=== PATIENT | female | born 1990 | race Caucasian/White ===

== ENCOUNTER 2017-09-24 03:17 | Inpatient (IN) | payer OTHER ==
[~2017-09-24] VITALS: Ht 160 cm; Wt 70.9 kg
[~2017-09-24 03:17] MED LIST: CLC100 PO; FRRS300 PO; MTR600X PO; PRENTAB26 PO
[2017-09-26] MEDS ORDERED: LACTATED RINGER'S 1000ML 1,000 ML IV SCH ×2 (00:31→03:29)
[2017-09-26] MEDS ORDERED: LACTATED RINGER'S 1000ML 1,000 ML IV PRN (00:31)
[2017-09-26] MEDS ORDERED: BUPIVACAINE 0.25% 30 ML VIAL ONE (00:44)
--- NOTE | 2017-09-26 00:44 | Progress Note ---
Progress Note Date of Service Sep 26, 2017. Progress Note Admit Note 27 F P1001 at 40.2 weeks admitted in active labor. Cervix 6-7/100/-1/vertex. GBS is negative. FHT Cat 1. Will admit planning for epidural.
[2017-09-26] MEDS ORDERED: FENTANYL 2MCG/ML ROPIV 1.25MG/ML 100ML BAG EPI ONE (00:45)
[2017-09-26] MEDS ORDERED: FENTANYL CITRATE INJ 50 MCG/1 ML 2 ML VIAL ONE (00:45)
[2017-09-26] MEDS ORDERED: EpHEDrine SULFATE INJ 50 MG/ML AMP ONE (00:45)
[2017-09-26 00:54] LABS: HEMATOCRIT 37.8 % (37-47); HEMOGLOBIN 13.7 g/dL (12.0-16.0); MEAN CELL VOLUME 94.3 fL (80-100); MEAN CORPUSCULAR HEMOGLOBIN 34.2 pg (25-34); MEAN CORPUSCULAR HGB CONC 36.2 g/dl (32-36); MEAN PLATELET VOLUME 11.2 fL (7.4-10.4); PLATELET COUNT 189 K/uL (130-400); RED CELL DISTRIBUTION WIDTH CV 13.2 % (11.5-14.5); RED CELL DISTRIBUTION WIDTH SD 45.7 fL (36.4-46.3); WHITE BLOOD COUNT 12.88 K/uL (4.8-10.8)
[2017-09-26] MEDS ORDERED: OXYTOCIN 30 UNITS/500ML NSS IV ONE (01:00)
[2017-09-26 01:33] VITALS: Ht 160 cm; Wt 70.9 kg
[2017-09-26] MEDS ORDERED: LIDOCAINE HCL 2% JELLY 30 ML TUBE EXT ONE (02:28)
[2017-09-26] MEDS ORDERED: METHYLERGONOVINE MALEATE 0.2 MG/ML AMP ONE (03:25)
[2017-09-26] MEDS ORDERED: DIPHTHERIA/TETANUS/PERTUSSIS 0.5 ML SYR/VIAL IM. ONE (03:30)
[2017-09-26] MEDS ORDERED: HYDROCORTISONE ACETATE 25 MG SUPP PR PRN (03:30)
[2017-09-26] MEDS ORDERED: SUPERCREAM 0.870 % 15GM JAR EXT PRN (03:30)
[2017-09-26] MEDS ORDERED: METHYLERGONOVINE MALEATE 0.2 MG/ML AMP IM ONE (03:30)
[2017-09-26] MEDS ORDERED: OXYTOCIN 30 UNITS/500ML NSS IV PRN (03:30)
[2017-09-26] MEDS ORDERED: MEASLES, MUMPS & RUBELLA VIRUS VIAL SQ. ONE (03:30)
[2017-09-26] MEDS ORDERED: BENZOCAINE 20% AER SPR 82.5 GM CAN EXT PRN (03:30)
[2017-09-26] MEDS ORDERED: LANOLIN OINT EXT PRN (03:30)
--- NOTE | 2017-09-26 03:34 | Vaginal Delivery Summary ---
Vaginal Delivery Summary Delivery Note live male CHERY over intact perineum with Apgars 8/9 weight pending. Delayed cord clamping followed by cord blood. Spontaneous delivery of intact placenta. No tears. EBL 400 ml. Final sponge and instrument count are correct. Mom and baby stable.
[2017-09-26] MEDS ORDERED: PRENTAB26 PO (03:50)
[2017-09-26] MEDS: IBUPROFEN 600 MG TAB PO PRN ×4 (03:58→19:49)
[2017-09-26] MEDS ORDERED: NURSING VERBAL MED ORDER ONE ×2 (04:30→14:30)
[2017-09-26] MEDS ORDERED: BUTORPHANOL TARTRATE 1 MG/ML VIAL ONE (04:39)
[2017-09-26] MEDS ORDERED: MISOPROSTOL 200 MCG TAB ONE (05:35)
--- NOTE | 2017-09-26 05:36 | Progress Note ---
Progress Note Date of Service Sep 26, 2017. Progress Note called to see patient with vaginal bleeding post delivery. inspection of vagina done with no evidence of any vaginal lacerations or tears noted. Uterus boggy with clots expressed. Cytotec 1000 mcg placed rectally. Gutierrez inserted. Will increase IV fluids. Check CBC.
[2017-09-26] MEDS ORDERED: MISOPROSTOL 200 MCG TAB PR ONE (05:45)
[2017-09-26] MEDS: ACETAMINOPHEN 325 MG TAB PO PRN (06:01)
[2017-09-26 06:19] LABS: HEMATOCRIT 33.5 % (37-47); HEMOGLOBIN 11.9 g/dL (12.0-16.0); MEAN CELL VOLUME 95.2 fL (80-100); MEAN CORPUSCULAR HEMOGLOBIN 33.8 pg (25-34); MEAN CORPUSCULAR HGB CONC 35.5 g/dl (32-36); MEAN PLATELET VOLUME 11.3 fL (7.4-10.4); PLATELET COUNT 209 K/uL (130-400); RED CELL DISTRIBUTION WIDTH CV 13.3 % (11.5-14.5); RED CELL DISTRIBUTION WIDTH SD 45.6 fL (36.4-46.3); WHITE BLOOD COUNT 24.15 K/uL (4.8-10.8)
[2017-09-26] MEDS: FERROUS SULFATE 325 MG TAB PO SCH (08:36)
[2017-09-26] MEDS: DOCUSATE SODIUM 100 MG CAP PO SCH ×2 (08:36→19:48)
[2017-09-26] MEDS: PRENATAL VITAMIN TAB PO SCH (08:36)
[2017-09-26] MEDS ORDERED: METHYLERGONOVINE MALEATE 0.2 MG/ML AMP IM STA (08:57)
[2017-09-26] MEDS ORDERED: OXYCODONE/ACETAMINOPHEN 5-325 TAB PO PRN (09:00)
[2017-09-26] MEDS: OXYCODONE/ACETAMINOPHEN 5-325 TAB PO PRN ×3 (09:27→17:09)
[2017-09-26] MEDS ORDERED: OXYTOCIN INJ 20 UNITS in LACTATED RINGER'S 1000ML 1,000 ML IV SCH (09:30)
[2017-09-26 12:20] LABS: HEMATOCRIT 28.6 % (37-47); HEMOGLOBIN 10.2 g/dL (12.0-16.0)
[2017-09-26 15:30] VITALS: BP 94/61; PULSE 85; TEMP 36.9
[2017-09-26 20:45] VITALS: BP 100/60; PULSE 95; TEMP 36.9; O2SAT 98
[2017-09-27 00:15] VITALS: BP 99/66; PULSE 83; TEMP 36.7; O2SAT 98
[2017-09-27] MEDS: IBUPROFEN 600 MG TAB PO PRN ×5 (00:17→20:17)
[2017-09-27 04:20] VITALS: BP 89/54; PULSE 90; TEMP 36.7
[2017-09-27] MEDS: OXYCODONE/ACETAMINOPHEN 5-325 TAB PO PRN (04:30)
[2017-09-27 07:15] VITALS: BP 90/56; PULSE 90; TEMP 37; O2SAT 97
[2017-09-27 07:41] LABS: HEMATOCRIT 23.7 % (37-47); HEMOGLOBIN 8.1 g/dL (12.0-16.0)
[2017-09-27] MEDS: DOCUSATE SODIUM 100 MG CAP PO SCH ×2 (08:09→20:17)
[2017-09-27] MEDS: FERROUS SULFATE 325 MG TAB PO SCH (08:09)
[2017-09-27] MEDS: PRENATAL VITAMIN TAB PO SCH (08:09)
--- NOTE | 2017-09-27 11:24 | OB/GYN Progress Note ---
LOG BUYER Progress Note Date of Service Sep 27, 2017. Subjective conversation w/ patient, physical exam Ambulation: ambulating normally Voiding: no voiding problems Passing Gas: Yes Diet Tolerance: Regular Diet Lochia: Small Feeding Type: Breast Feeding Objective Vital Signs Date Time Temp Pulse Resp B/P (MAP) Pulse Ox O2 Delivery O2 Flow Rate FiO2 09/27/17 07:15 Room Air 09/27/17 07:15 37.0 90 16 90/56 (67) 97 Room Air 09/27/17 04:20 36.7 90 16 89/54 (66) Room Air 09/27/17 00:15 98 Room Air 09/27/17 00:15 36.7 83 16 99/66 (77) 98 Room Air 09/26/17 20:45 36.9 95 16 100/60 (73) 98 Room Air 09/26/17 15:30 Room Air 09/26/17 15:30 36.9 85 20 94/61 (72) Room Air Physical Exam General Appearance: WELL-APPEARING, NO APPARENT DISTRESS Abdomen: non tender Fundus: Firm Extremities: normal inspection, no pedal edema, no calf tenderness Laboratory Results Last 24 Hours Test 09/26/17 12:08 09/27/17 07:29 Hemoglobin 10.2 g/dL 8.1 g/dL Hematocrit 28.6 % 23.7 % Assessment and Plan Post- Day Number: 1 Continue Routine Care: tent d/c in AM
[2017-09-27 15:27] VITALS: BP 105/68; PULSE 104; TEMP 36.8; O2SAT 98
[2017-09-27] MEDS: ACETAMINOPHEN 325 MG TAB PO PRN ×2 (15:47→23:40)
[2017-09-27] MEDS ORDERED: BISACODYL 5 MG TABEC PO SCH (20:00)
[2017-09-27 23:50] VITALS: BP 100/66; PULSE 90; TEMP 36.7
[2017-09-28 04:50] LABS: HEMATOCRIT 24.5 % (37-47); HEMOGLOBIN 8.4 g/dL (12.0-16.0)
[2017-09-28] MEDS: IBUPROFEN 600 MG TAB PO PRN ×2 (05:49→12:46)
[2017-09-28] MEDS ORDERED: BISACODYL 10 MG SUPP PR PRN (07:00)
--- NOTE | 2017-09-28 07:22 | OB/GYN Progress Note ---
REGISTRY NURSE Progress Note Date of Service Sep 28, 2017. Subjective conversation w/ patient, physical exam Ambulation: ambulating normally Voiding: no voiding problems Passing Gas: Yes Diet Tolerance: Regular Diet Lochia: Small Feeding Type: Breast Feeding Pain: 10/20 Notes: Doing well, no concerns. Pain well controlled. Tolerating regular diet. Ambulating without difficulty. Objective Vital Signs Date Time Temp Pulse Resp B/P (MAP) Pulse Ox O2 Delivery O2 Flow Rate FiO2 09/27/17 23:50 36.7 90 18 100/66 (77) 09/27/17 23:50 Room Air 09/27/17 15:27 36.8 104 18 105/68 (80) 98 Room Air 09/27/17 15:27 98 Room Air Physical Exam General Appearance: WELL-APPEARING Respiratory/Chest: chest non-tender, lungs clear Cardiovascular: regular rate, rhythm Abdomen: normal bowel sounds, soft Fundus: Firm Extremities: normal range of motion, non-tender, no calf tenderness Laboratory Results Last 24 Hours Test 09/27/17 07:29 09/28/17 04:42 Hemoglobin 8.1 g/dL 8.4 g/dL Hematocrit 23.7 % 24.5 % Assessment and Plan Post- Day Number: 2 Continue Routine Care: -D/C home today -F/U in 6 weeks.
[2017-09-28] MEDS ORDERED: MTR600X PO (07:23)
--- NOTE | 2017-09-28 07:23 | Discharge Instructions ---
Discharge Instructions Date of Service Sep 28, 2017. Admission Reason for Admission: Labor Check Discharge Discharge Diagnosis / Problem: Vaginal delivery Discharge Goals Goal(s): Routine recovery after delivery Medications Continue Dispensed Medications: supercream, dermaplast, tucks, lansinoh Activity Recommendations Activity Limitations: per Instructions/Follow-up section . Instructions / Follow-Up Instructions / Follow-Up ACTIVITY RECOMMENDATIONS: * Gradual return to full activity over the next 2-3 weeks. * No lifting - nothing heavier than baby over the next 2-3 weeks. * Do not engage in vigorous exercise, sexual activity or sports until cleared by your physician. * Do not drive or operate any motorized equipment until cleared by your physician. * You may shower/bathe daily. BREAST CARE: If you are not breast feeding: * Wear a supportive bra 24 hours a day for one to two weeks. * Avoid stimulating your breasts and nipples as much as possible during the first few weeks after delivery. * When taking a shower, have the warm water hit your back, not breasts. * When your breasts feel full, apply ice packs. Usually three to four times a day helps ease the discomfort. * Take a mild pain medication (Tylenol/Motrin) when you are uncomfortable. If breast feeding: * Use breast milk to lubricate nipples. Lansinoh cream may be used for sore nipples. You do not need to remove cream prior to breast feeding. If using a different brand of cream, check the label for directions regarding removal of cream prior to nursing. * Wear a supportive bra. * If having problems with breasts or breast feeding, call a sediment remediation consultant or your health care provider. EPISIOTOMY CARE: After delivery, if you have an episiotomy (stitches), the following steps will ease discomfort and aid healing. * For the first 24 hours after delivery, place ice packs next to your episiotomy to help reduce swelling. * After the first 24 hour-period, sitz baths, either portable or in the tub, are suggested. A shower with a shower arm sprayed over the episiotomy may be comforting. * Eri care should be done after each voiding and bowel movement. Squirt warm water from a plastic bottle over the perineum (region of the body between the anus and urinary opening) and pat dry. * Use Dermoplast to ease discomfort. Shake container. [place] directly over the episiotomy. * Place a Tucks on a clean sanitary pad next to your episiotomy. OVER THE COUNTER MEDICATION: * For discomfort or pain, you may use Acetaminophen (Tylenol), Ibuprofen (Advil ), or Naproxen (Aleve) following the package directions. * For constipation you may use Colace following the package directions. SPECIAL CARE INSTRUCTIONS: When you are discharged from the hospital, it is important for you to follow the instructions listed below: * During the first week at home, you should be able to care for yourself and your baby. In addition, the usual light household activities are encouraged. * Limit your activities to the way you feel. Do not try to clean the house or move furniture. Be sensible. * If you actively engage in sports and have done so up until the time of your delivery, you may resume these activities as soon as you feel able. This may take up to one month or even longer. Use good judgment. * Continue to take your vitamins for at least six weeks after the of your baby. * Your diet need not be limited unless you were on a special diet before your delivery. Breast-feeding mothers need around 2500 calories per day and at least 64-80 ounces of fluid per day (8 to 10 glasses). * You should eat foods from the four major food groups. Crash diets or fad diets are to be avoided. Eating lean meats, fresh fruits and vegetables, low-fat dairy products, high fiber foods and a regular exercise program, will help you get back to your pre- weight without putting your health at risk. * Constipation is sometimes a problem after delivery. Take a mild laxative as needed. If breast feeding, Milk of Magnesia is acceptable to use. You may use a suppository or Fleets enema if no episiotomy. * A daily shower or tub bath is suggested. Be sure to thoroughly and gently dry the perineum. * A bloody vaginal discharge will usually continue until around four weeks post . A small amount of bleeding may continue for as long as six weeks. Vaginal discharge changes from the bright red bleeding after delivery to pink then brownish and finally yellowish-pink before becoming white and disappearing. * Bleeding may increase with activity. Your first period may come in 4-8 weeks. If you are breast feeding, your period may be delayed even longer. * [place] (sex) can begin whenever both you and your partner feel comfortable and do not have any form of genital infection. It is recommended that you wait until after your return appointment and discuss with your physician. If you have questions, please talk to your health care practitioner. A condom should be used to prevent infection and . * Foreplay, gentle intercourse and lubrication is very important the first several times to prevent pain. A water-based lubricant such as K-Y jelly or Astroglide may be used. * Tampons may be used six weeks after delivery. * Douching should be avoided for 6 weeks after delivery. * If you have RH negative blood and your baby is RH positive, you will receive RHOGAM by injection prior to discharge. The nurse will give you a card to keep with you that has the date and place that you received RHOGAM after delivery. * During your care, you had a Rubella screen done to check for the presence of rubella antibodies in your blood. If your test was negative, you will receive a Rubella vaccine prior to discharge. This vaccine may cause a fever, soreness at the injection site and flu-like symptoms. If these symptoms persist, notify your health care practitioner. is not advised for three months after a Rubella vaccine. There is a higher chance of having a baby with defects if conceived within three months of getting the vaccine. * If you were discharged 24 hours from delivery or before 48 hours: Visiting nurses will come to your home 48 hours after discharge to assess you and your baby. The visiting nurse will meet with you while you are in the hospital to arrange a time and get directions to your home. * Verbalizes understanding of car seat law as reviewed with patient nursing. * Car Seat hand-out given and reviewed with patient by nursing. * Shaken baby information reviewed with patient by nursing. Call you doctor if: * Heavy bleeding (saturating several pads an hour) or passing clots the size of your fist. * A fever >101 degrees F (38.3 degrees C) on two occasions four hours apart and/or chills. * Unusual pain in the pelvic or vaginal areas. * "Baby Blues" lasting longer than two weeks. If you have any questions or concerns, call your health care practitioner at . FOLLOW-UP VISIT: * Please call the office at to schedule a 6 week examination. It is important you keep this appointment. * It is important for you to make arrangements for either yearly or twice yearly check-ups thereafter. Current Hospital Diet Patient's current hospital diet: Regular OB Diet Discharge Diet Recommended Diet: Regular OB Diet Pending Studies Studies pending at discharge: no Medical Emergencies . Who to Call and When: Medical Emergencies: If at any time you feel your situation is an emergency, please call 911 immediately. . Non-Emergent Contact Non-Emergency issues call your: Primary Care Provider, Windows Server Engineer . . "Provider Documentation" section prepared by Richard Kingsley. . VTE Core Measure Inpt VTE Proph given/why not?: Treatment not indicated
[2017-09-28 08:05] VITALS: BP 101/66; PULSE 92; TEMP 36.8; O2SAT 97
[2017-09-28] MEDS: PRENATAL VITAMIN TAB PO SCH (08:27)
[2017-09-28] MEDS: FERROUS SULFATE 325 MG TAB PO SCH (08:27)
[2017-09-28] MEDS: DOCUSATE SODIUM 100 MG CAP PO SCH (08:27)
[2017-09-28] MEDS: ACETAMINOPHEN 325 MG TAB PO PRN (08:28)
[2017-09-28 14:36] VITALS: BP_DIAS 66; PULSE 92; TEMP 36.8
== END 2017-09-28 14:45 | disposition home or self-care (01) | DRG 774 ==
LOC: EDSTATUS 09-26 00:08 → C.LD 09-26 00:13 → C.OBG 09-26 15:41
PROVIDERS: ADMIT Obstetrics & Gynecology; ATTEND Obstetrics & Gynecology
PROC: 10E0XZZ Delivery of Products of Conception, External Approach (ICD-10-PCS; principal; 2017-09-26)
PROC: 3E0H7GC Introduction of Other Therapeutic Substance into Lower GI, Via Natural or Artificial Opening (ICD-10-PCS; 2017-09-26)
DX: O72.1 Other immediate postpartum hemorrhage (principal); Z3A.40 40 weeks gestation of pregnancy; Z37.0 Single live birth

== ENCOUNTER 2017-12-03 18:52 | Emergency (ER) | payer OTHER ==
[~2017-12-03] VITALS: Ht 160 cm; Wt 61.0 kg
[2017-12-03 19:00] VITALS: TEMP 36.9; Ht 160 cm; Wt 61.0 kg
[2017-12-03] MEDS ORDERED: SODIUM CHLORIDE 0.9% 1000ML 1,000 ML IV STA (19:17)
[2017-12-03 19:57] LABS: BASO % 0.4 %; BASO ABS # 0.02 K/uL (0-0.2); EOS % 4.3 %; EOS ABS # 0.21 K/uL (0-0.5); HEMATOCRIT 37.7 % (37-47); IG# 0.01 K/uL (0.00-0.02); LYMPH % 29.2 %; LYMPH ABS # 1.43 K/uL (1.2-3.4); MEAN CELL VOLUME 90.2 fL (80-100); MEAN CORPUSCULAR HEMOGLOBIN 31.1 pg (25-34); MEAN CORPUSCULAR HGB CONC 34.5 g/dl (32-36); MEAN PLATELET VOLUME 10.1 fL (7.4-10.4); MONO % 9.8 %; MONO ABS # 0.48 K/uL (0.11-0.59); NEUT % 56.1 %; NEUT ABS # 2.74 K/uL (1.4-6.5); PLATELET COUNT 270 K/uL (130-400); RED CELL DISTRIBUTION WIDTH CV 12.1 % (11.5-14.5); RED CELL DISTRIBUTION WIDTH SD 39.2 fL (36.4-46.3); WHITE BLOOD COUNT 4.89 K/uL (4.8-10.8)
[2017-12-03 20:15] LABS: PTT PATIENT 26.3 SECONDS (21.0-31.0)
[2017-12-03 20:18] LABS: ALBUMIN 3.7 gm/dl (3.4-5.0); CALCIUM 8.5 mg/dl (8.5-10.1); CREATININE 0.98 mg/dl (0.60-1.20); POTASSIUM 3.7 mmol/L (3.5-5.1)
[2017-12-03 20:21] LABS: TOTAL PROTEIN 7.3 gm/dl (6.4-8.2)
--- NOTE | 2017-12-03 20:42 | DIAGNOSTIC IMAGING REPORT ---
PELVIC ULTRASOUND, TRANSABDOMINAL AND TRANSVAGINAL HISTORY: heavy vaginal bleeding, 10 wks COMPARISON: Pelvic ultrasound 01/14/2015. FINDINGS: Uterus: 8.1 x 4.4 x 6.3 cm. There is a 1.1 x 0.8 x 0.5 cm echogenic structure adjacent to and abutting the left side of the fundus of the endometrium. This demonstrates posterior shadowing. Endometrial stripe: 4 mm in thickness. No abnormal color flow. Right ovary: Normal in size and demonstrates normal color flow. Left ovary: Normal in size and demonstrates normal color flow. Miscellaneous:No pelvic free fluid. IMPRESSION: 1. Normal endometrium. No abnormal color flow. 2. A 1.1 x 0.8 x 0.5 cm echogenic structure adjacent to and abutting the left side of the fundus of the endometrium. This demonstrates posterior shadowing and favors a focus of calcification. This could represent a calcified submucosal fibroid. Electronically signed by: Ezequiel Alvarez M.D. 12/03/2017 8:41 PM Dictated Date/Time: 12/03/2017 8:38 PM
--- NOTE | 2017-12-03 21:36 | EMERGENCY ROOM VISIT NOTE ---
History First contact with patient: 19:05 Chief Complaint: VAGINAL BLEEDING Stated Complaint: 10 WEEKS BLEEDING History of Present Illness The patient is a 27 year old female who presents to the Emergency Room with complaints of vaginal bleeding. The patient had a normal vaginal delivery 10 weeks ago. She states she has had persistent bleeding since then. She has seen [facility] TRAINING DEVELOPER for this and was prescribed Aygestin which she took for 5 days. She states that the bleeding stopped 2 days after starting this medication. She finished the medication 2 days ago and started bleeding yesterday. She states that she has been bleeding heavily and has been going through 2 pads per hour. She reports that she feels dizzy and tired. She does state she has been passing blood clots as well. She denies any history of bleeding disorders. She denies any abdominal pain, nausea or vomiting. Review of Systems A complete 10 point review of systems was reviewed with the patient with pertinent positives and negatives as per history of present illness. All else were negative. Past Medical/Surgical History Medical Problems: (1) No significant active problems Social History Smoking Status: Never Smoker Housing Status: lives with family Current/Historical Medications Scheduled Docusate Sodium (Docusate Sodium), 100 MG PO BID Ibuprofen (Advil), 400-600 MG PO Q6H Multivit/Min/Iron/Fol Ac/Pren ( Vitamin), 1 TAB PO DAILY Norethindrone (Contraceptive) (Norethindrone), 1 TAB PO ON HOLD Ranitidine HCl (Ranitidine HCl), 150 MG PO DAILY Scheduled PRN Docusate Sodium (Docusate Sodium), 1 CAP PO BID PRN for Constipation Ondansetron (Ondansetron HCl), 8 MG PO TID PRN for Nausea Physical Exam Vital Signs Date Time Temp Pulse Resp B/P (MAP) Pulse Ox O2 Delivery O2 Flow Rate FiO2 12/03/17 21:43 74 18 114/71 98 12/03/17 20:42 73 18 111/78 98 Room Air 12/03/17 19:00 36.9 91 16 112/71 97 Room Air Physical Exam VITALS: Vitals are noted on the nurse's note and reviewed by myself. Vital signs stable. GENERAL: This is a 27-year-old female, in no acute distress, nondiaphoretic, well-developed well-nourished. SKIN: The skin was without rashes. HEART: Regular rate and rhythm without murmurs gallops or rubs. LUNGS: Clear to auscultation bilaterally without wheezes, rales or rhonchi. ABDOMEN: Positive bowel sounds x 4. Soft, nontender to palpation. PELVIC: Moderate amount of blood within the vaginal vault. Cervix is closed. NEURO: Patient was alert and oriented to person place and time. Medical Decision & Procedures ER Provider Diagnostic Interpretation: PELVIC ULTRASOUND, TRANSABDOMINAL AND TRANSVAGINAL HISTORY: heavy vaginal bleeding, 10 wks COMPARISON: Pelvic ultrasound 01/14/2015. FINDINGS: Uterus: 8.1 x 4.4 x 6.3 cm. There is a 1.1 x 0.8 x 0.5 cm echogenic structure adjacent to and abutting the left side of the fundus of the endometrium. This demonstrates posterior shadowing. Endometrial stripe: 4 mm in thickness. No abnormal color flow. Right ovary: Normal in size and demonstrates normal color flow. Left ovary: Normal in size and demonstrates normal color flow. Miscellaneous:No pelvic free fluid. IMPRESSION: 1. Normal endometrium. No abnormal color flow. 2. A 1.1 x 0.8 x 0.5 cm echogenic structure adjacent to and abutting the left side of the fundus of the endometrium. This demonstrates posterior shadowing and favors a focus of calcification. This could represent a calcified submucosal fibroid. Laboratory Results 12/03/17 19:28 Red Blood Count 4.18, Mean Corpuscular Volume 90.2, Mean Corpuscular Hemoglobin 31.1, Mean Corpuscular Hemoglobin Concent 34.5, Mean Platelet Volume 10.1, Neutrophils (%) (Auto) 56.1, Lymphocytes (%) (Auto) 29.2, Monocytes (%) (Auto) 9.8, Eosinophils (%) (Auto) 4.3, Basophils (%) (Auto) 0.4, Neutrophils # (Auto) 2.74, Lymphocytes # (Auto) 1.43, Monocytes # (Auto) 0.48, Eosinophils # (Auto) 0.21, Basophils # (Auto) 0.02 12/03/17 19:28 Test 12/03/17 19:25 12/03/17 19:28 Urine Color LIGHT RED Urine Appearance CLEAR (CLEAR) Urine pH 6.0 (4.5-7.5) Urine Specific [place] 1.009 (1.000-1.030) Urine Protein 1+ (NEG) Urine Glucose (UA) NEG (NEG) Urine Ketones NEG (NEG) Urine Occult Blood 3+ (NEG) Urine Nitrite NEG (NEG) Urine Bilirubin NEG (NEG) Urine Urobilinogen NEG (NEG) Urine Leukocyte Esterase TRACE (NEG) Urine WBC (Auto) 1-5 /hpf (0-5) Urine RBC (Auto) >30 /hpf (0-4) Urine Hyaline Casts (Auto) 0 /lpf (0-5) Urine Epithelial Cells (Auto) 5-10 /lpf (0-5) Urine Bacteria (Auto) NEG (NEG) White Blood Count 4.89 K/uL (4.8-10.8) Red Blood Count 4.18 M/uL (4.2-5.4) Hemoglobin 13.0 g/dL (12.0-16.0) Hematocrit 37.7 % (37-47) Mean Corpuscular Volume 90.2 fL (80-100) Mean Corpuscular Hemoglobin 31.1 pg (25-34) Mean Corpuscular Hemoglobin Concent 34.5 g/dl (32-36) Platelet Count 270 K/uL (130-400) Mean Platelet Volume 10.1 fL (7.4-10.4) Neutrophils (%) (Auto) 56.1 % Lymphocytes (%) (Auto) 29.2 % Monocytes (%) (Auto) 9.8 % Eosinophils (%) (Auto) 4.3 % Basophils (%) (Auto) 0.4 % Neutrophils # (Auto) 2.74 K/uL (1.4-6.5) Lymphocytes # (Auto) 1.43 K/uL (1.2-3.4) Monocytes # (Auto) 0.48 K/uL (0.11-0.59) Eosinophils # (Auto) 0.21 K/uL (0-0.5) Basophils # (Auto) 0.02 K/uL (0-0.2) RDW Standard Deviation 39.2 fL (36.4-46.3) RDW Coefficient of Variation 12.1 % (11.5-14.5) Immature Granulocyte % (Auto) 0.2 % Immature Granulocyte # (Auto) 0.01 K/uL (0.00-0.02) Prothrombin Time 10.0 SECONDS (9.0-12.0) Prothromb Time International Ratio 1.0 (0.9-1.1) Activated Partial Thromboplast Time 26.3 SECONDS (21.0-31.0) Partial Thromboplastin Ratio 1.0 Anion Gap 7.0 mmol/L (3-11) Est Creatinine Clear Calc Drug Dose 70.7 ml/min Estimated GFR () 91.0 Estimated GFR (Non- 78.5 BUN/Creatinine Ratio 12.4 (10-20) Calcium Level 8.5 mg/dl (8.5-10.1) Total Bilirubin 0.6 mg/dl (0.2-1) Aspartate Amino Transf (AST/SGOT) 23 U/L (15-37) Alanine Aminotransferase (ALT/SGPT) 46 U/L (12-78) Alkaline Phosphatase 78 U/L (45-117) Total Protein 7.3 gm/dl (6.4-8.2) Albumin 3.7 gm/dl (3.4-5.0) Globulin 3.6 gm/dl (2.5-4.0) Albumin/Globulin Ratio 1.0 (0.9-2) Medications Administered Medications (Trade) Dose Ordered Sig/Negrita Route Start Time Stop Time Status Last Admin Dose Admin Sodium Chloride 1,000 ml @ 999 mls/hr Q1H1M STAT IV 12/03/17 19:17 12/03/17 20:17 DC 12/03/17 19:39 999 MLS/HR Medical Decision Differential diagnosis includes bleeding, uterine fibroid, anemia, among others. The patient was evaluated as above. She presents with vaginal bleeding 10 weeks after a vaginal delivery. She has completed a course of Aygestin. Vitals today are stable. Labs revealed no leukocytosis or anemia. There were no concerning electrolyte abnormalities. Ultrasound was performed and showed possible uterine fibroid. Pelvic exam showed a moderate amount of blood. I did speak with Dr. Copeland, who recommended that the patient start her control pill now. She was advised to call the office to schedule follow-up. She verbalized understanding of my assessment and treatment plan and was discharged home in good condition. Medication Reconcilliation Current Medication List: was personally reviewed by me Blood Pressure Screening Patient's blood pressure: Normal blood pressure Impression Primary Impression: Vaginal bleeding Departure Information Dispostion Home / Self-Care Condition GOOD Referrals No Doctor, Assigned (PCP) Patient Instructions [facility] Additional Instructions You may begin the control pills now to help regulate the bleeding. Contact [facility] DEVELOPER tomorrow for follow up. Return to the emergency department for any worsening or new/concerning symptoms.
[2017-12-03 21:43] VITALS: BP 114/71; PULSE 74; O2SAT 98
[2017-12-03] MEDS ORDERED: IBUP-1050 PO (21:44)
[2017-12-03] MEDS ORDERED: ONDA-63 PO (21:44)
[2017-12-03] MEDS ORDERED: DOCU100C31 PO (21:44)
[2017-12-03] MEDS ORDERED: RANI150T2 PO (21:44)
[2017-12-03] MEDS ORDERED: NORE1TAB50 PO (21:44)
== END 2017-12-03 21:45 | disposition home or self-care (01) ==
LOC: C.EDB 18:54
DX: N93.9 Abnormal uterine and vaginal bleeding, unspecified (principal)

== ENCOUNTER 2018-10-21 18:22 | Inpatient (IN) ==
[2018-10-21] MEDS ORDERED: CEFAZOLIN 1000MG 1,000 MG/7.5 ML SYR IV PRN (19:15)
[2018-10-21] MEDS ORDERED: LACTATED RINGER'S 1,000 ML IV SCH (19:15)
[2018-10-21] MEDS ORDERED: LACTATED RINGER'S 1,000 ML IV PRN (19:15)
--- NOTE | 2018-10-21 19:30 | Progress Note ---
Date of Service October 21, 2018 Met pt and reviewed care H&P done FHR; CAT1 Ctx 1-3mins VE by nUrse 100/0 Will admit pt and anticipate labor Pt is +ve GBS, has allergy to PCN. gets Hives, No hx of anaphylaxis with PCN discuss Ancef , risk of 4-10% cross reactivity pt has agreed to Ancef trial Physical Exam Vital Signs (Past 24 Hours): Last Vital Signs Temp 36.7 C 10/21/18 18:35 Pulse 79 10/21/18 18:35 Resp 16 10/21/18 18:35 BP 104/68 10/21/18 18:35
[2018-10-21] MEDS ORDERED: CEFAZOLIN 2000MG 2,000 MG/15 ML SYR IV STA (19:39)
[2018-10-21] MEDS ORDERED: BUPIVACAINE 0.25% 30 ML VIAL ONE (19:41)
[2018-10-21] MEDS ORDERED: ePHEDrine sulfate 50 MG/ML AMP ONE (19:41)
[2018-10-21] MEDS ORDERED: fentaNYL 2MCG/ML ROPIV 1.25MG/ML 100 ML BAG EPI ONE (19:42)
[2018-10-21 19:43] LABS: Hematocrit (blood only) 33.4 % (37-47); Hemoglobin 11.3 g/dL (12.0-16.0); Mean Corpuscular Volume 90.8 fL (80-100); Mean Platelet Volume 11.3 fL (7.4-10.4); Platelet Count 195 K/uL (130-400); RDW Coefficient of Variation 13.5 % (11.5-14.5); RDW Standard Deviation 44.5 fL (36.4-46.3); Red Blood Count 3.68 M/uL (4.2-5.4); White Blood Count 8.94 K/uL (4.8-10.8)
--- NOTE | 2018-10-21 19:49 | Anesthesiology Consultation ---
Date of Service October 21, 2018 Assessment & Plan Chart Review Chart Review: Patient NOT seen in Pre Admission Testing and Acceptable Risk for Labor Epidural plan for single shot spinal due to patient being complete Consults Requested none ASA ASA3 Proposed Anesthesia Anesthesia Type: Spinal Risk / Benefits Reviewed With: PT / POA / Parent / Guardian, Accepts Plan and Informed Consent Obtained NPO Date Last Intake of Fluids: 10/21/18 Time Last Intake of Fluids: 20:22 Date Last Intake of Solids: 10/21/18 Time Last Intake of Solids: 11:30 History Height/Weight Height: 5 ft 3 in Weight: 74.843 kg Allergies Allergy/AdvReac Type Severity Reaction Status Date / Time Penicillins Allergy Intermediate Hives Verified 10/21/18 19:58 amoxicillin Allergy Unknown ANAPHYLAXIS; Verified 09/26/17 06:20 lock jaw Medications Home Medications Medication Instructions Recorded Confirmed Last Taken PNV cmb#95-ferrous fumarate-FA 1 tab PO DAILY 10/21/18 10/21/18 09/23/18 08:00 [] Past Medical History Medical History Epilepsy Past Surgical History Surgical History History of cholecystectomy Past Anesthesia History No Hx of Anesthesia Complications Family history of superhuman strength and aggression after anesthesia History of PONV No Motion Sickness Screening History of Motion Sickness: No Social History Smoking Status: Never smoker Do You Dip or Chew Tobacco: No Hx Alcohol Use: No Hx Substance Use: No Exercise / Class Metabolic Activity III < 4 Walking/Shop/Light housework Negative for chest pain or shortness of breath. Review of Systems Patient denies history of abnormal bleeding or bleeding disorder. Patient denies active use of anticoagulants other than low dose aspirin. Patient denies numbness, tingling or weakness in his lower extremities. Positive for GERD currently Physical Exam Vital Signs Last Vital Signs Temp 36.7 C 10/21/18 18:35 Pulse 76 10/21/18 19:41 Resp 16 10/21/18 18:35 BP 107/65 10/21/18 19:41 Constitutional not obese (Gravid uterus) ENMT Mouth: no TMJ abnormality and oral opening not small Thyromental Distance: < 3.5 Finger Breadths Mallampati Class: II Neck normal visual inspection; neck extension not limited Respiratory normal respiratory effort Auscultation: lungs clear to auscultation bilaterally Cardiovascular Rate/Rhythm: regular rate and regular rhythm Heart Sounds: no murmur Psychiatric A+Ox3, euthymic affect Orientation: alert and oriented x 3 Testing Laboratory Results 10/21/18 19:31
[2018-10-21 20:11] LABS: Mean Corpuscular Hgb Conc 33.8 g/dL (32-36)
[2018-10-21] MEDS ORDERED: METHYLERGONOVINE MALEATE 0.2 MG/ML AMP ONE (20:33)
[2018-10-21] MEDS: fentaNYL citrate 100 MCG/2 ML VIAL ONE ×2 (20:38→21:43)
[2018-10-21] MEDS: OXYTOCIN 30 UNITS/500 ML BAG IV PRN ×2 (21:44→22:20)
[2018-10-21] MEDS ORDERED: fentaNYL citrate 100 MCG/2 ML VIAL ONE ×2 (22:03→22:58)
[2018-10-21] MEDS ORDERED: MIDAZOLAM HCL 1 MG/ML 2ML VIAL ONE (22:03)
[2018-10-21] MEDS ORDERED: PROPOFOL IV EMULSION 10 MG/ML 20 ML VIAL IV ONE (22:04)
[2018-10-21] MEDS ORDERED: SUCCINYLCHOLINE CHLORIDE 20 MG/ML 10 ML VIAL ONE (22:04)
[2018-10-21] MEDS ORDERED: SODIUM CHLORIDE 0.9% 250 ML IV PRN (22:07)
[2018-10-21] MEDS ORDERED: CARBOPROST TROMETHAMINE 250 MCG/ML AMPUL ONE (22:10)
[2018-10-21] MEDS ORDERED: TRANEXAMIC ACID 10% SOLN for EPISTAXIS TOP STA (22:35)
[2018-10-21 22:55] LABS: Hematocrit (blood only) 32.8 % (37-47); Hemoglobin 11.1 g/dL (12.0-16.0)
[2018-10-21] MEDS ORDERED: CEFAZOLIN 250 MG/ML 1 GM VIAL ONE ×2 (23:04)
[2018-10-21] MEDS ORDERED: PHENYLEPHRINE 100MCG/ML 5ML SYR IV PRN (23:14)
[2018-10-21] MEDS ORDERED: ePHEDrine sulfate 50 MG/ML AMP IV PRN (23:14)
[2018-10-21] MEDS ORDERED: ONDANSETRON INJ 2 MG/ML 2 ML VIAL IV PRN (23:14)
[2018-10-21] MEDS ORDERED: PROMETHAZINE HCL 12.5 MG in SODIUM CHLORIDE 0.9% 50 ML IV PRN (23:14)
[2018-10-21] MEDS ORDERED: fentaNYL citrate 100 MCG/2 ML VIAL IV PRN (23:14)
[2018-10-21] MEDS ORDERED: ATROPINE SULFATE 0.1 MG/ML 10ML SYR IV PRN (23:14)
[2018-10-21] MEDS ORDERED: OXYTOCIN 10 UNITS/ML VIAL ONE (23:15)
[2018-10-21] MEDS ORDERED: miSOPROStol 100 MCG TAB ONE (23:20)
[2018-10-21] MEDS ORDERED: miSOPROStol 200 MCG TAB ONE (23:25)
[2018-10-22] MEDS: HYDROmorphone INJ 1 MG/ML SYRINGE IV PRN ×3 (00:17→01:00)
[2018-10-22] MEDS ORDERED: SUPERCREAM 0.870% 15 GM JAR EXT PRN (00:52)
[2018-10-22] MEDS ORDERED: DIPHTHERIA/TETANUS/PERTUSSIS 0.5 ML SYR/VIAL IM ONE (00:52)
[2018-10-22] MEDS ORDERED: BISACODYL 10 MG SUPP PR PRN (00:52)
[2018-10-22] MEDS ORDERED: CARBOPROST TROMETHAMINE 250 MCG/ML AMPUL IM ONE (00:52)
[2018-10-22] MEDS ORDERED: METHYLERGONOVINE MALEATE 0.2 MG/ML AMP IM ONE (00:52)
[2018-10-22] MEDS ORDERED: miSOPROStol 200 MCG TAB PR ONE (00:52)
[2018-10-22] MEDS ORDERED: BENZOCAINE 20% AER SPR 82.5 GM CAN EXT PRN (00:52)
[2018-10-22] MEDS ORDERED: OXYTOCIN 30 UNITS/500 ML BAG IV PRN (00:52)
[2018-10-22] MEDS ORDERED: HYDROmorphone INJ 1 MG/ML SYRINGE IV PRN (01:01)
[2018-10-22] MEDS ORDERED: OXYTOCIN 20 UNITS in LACTATED RINGER'S 1,000 ML IV SCH (01:30)
--- NOTE | 2018-10-22 02:53 | Anesthesiology Progress Note ---
Date of Service October 22, 2018 Anesthesia Post Procedure Vital Signs Vital Signs: Temp Pulse Pulse Resp BP BP Pulse Ox 10/22/18 02:04 78 99 10/22/18 01:59 84 97 10/22/18 01:54 91 H 97 10/22/18 01:53 83 108/60 10/22/18 01:49 83 99 10/22/18 01:44 90 98 10/22/18 01:39 78 98 10/22/18 01:34 81 98 10/22/18 01:30 75 18 120/69 99 10/22/18 01:29 78 98 10/22/18 01:24 89 99 10/22/18 01:22 75 120/69 10/22/18 01:19 81 99 10/22/18 01:14 83 97 10/22/18 01:09 84 99 10/22/18 01:04 98 H 98 10/22/18 01:00 98 H 18 113/70 98 10/22/18 00:59 79 97 10/22/18 00:54 81 97 10/22/18 00:52 90 113/70 10/22/18 00:50 90 18 113/70 97 10/22/18 00:49 88 97 10/22/18 00:44 77 97 10/22/18 00:42 74 107/65 10/22/18 00:40 74 20 107/65 97 10/22/18 00:39 75 98 10/22/18 00:34 79 98 10/22/18 00:32 74 110/67 10/22/18 00:30 74 18 110/67 98 10/22/18 00:29 80 99 10/22/18 00:24 79 98 10/22/18 00:22 75 112/65 10/22/18 00:20 75 18 112/65 98 10/22/18 00:19 77 99 10/22/18 00:14 89 99 10/22/18 00:12 80 109/60 10/22/18 00:10 80 18 109/60 99 10/22/18 00:09 89 100 10/22/18 00:04 90 100 10/22/18 00:00 36.6 C 92 H 92 H 16 115/52 L 115/52 L 100 10/21/18 23:59 99 H 100 10/21/18 23:54 104 H 100 10/21/18 22:31 85 107/71 10/21/18 22:18 80 103/67 10/21/18 22:03 82 106/66 10/21/18 21:33 88 92 10/21/18 21:32 88 116/69 10/21/18 21:31 82 95 10/21/18 21:26 85 20 99 10/21/18 21:21 91 H 100 10/21/18 21:18 82 112/67 10/21/18 21:16 83 100 10/21/18 21:11 86 100 10/21/18 21:06 91 H 100 10/21/18 21:04 84 163/117 H 10/21/18 21:01 81 100 10/21/18 21:00 20 10/21/18 20:58 85 92 10/21/18 20:56 76 100 10/21/18 20:51 71 100 10/21/18 20:47 71 104/58 L 10/21/18 20:46 79 94 10/21/18 20:45 69 18 90/58 L 10/21/18 20:41 75 92 10/21/18 20:37 68 115/64 10/21/18 20:36 67 100 10/21/18 20:32 72 91 10/21/18 20:31 70 103/65 99 10/21/18 20:30 18 10/21/18 20:29 71 103/64 10/21/18 20:27 71 114/66 10/21/18 20:26 76 95 10/21/18 20:25 68 105/59 L 10/21/18 20:23 69 113/58 L 10/21/18 20:21 74 102/58 L 100 10/21/18 20:19 70 111/60 10/21/18 20:17 73 103/55 L 10/21/18 20:16 79 99 10/21/18 20:15 78 18 114/58 L 10/21/18 20:13 73 106/60 10/21/18 20:11 74 106/58 L 99 10/21/18 20:06 78 123/72 98 10/21/18 20:01 73 96 10/21/18 19:56 79 100 10/21/18 19:51 76 98 10/21/18 19:41 76 107/65 10/21/19 19:30 20 10/21/18 19:27 36.6 C 76 20 107/65 10/21/18 18:35 36.7 C 79 16 104/68 Pain Intensity Vaginal: Pain Intensity: 7 Notes Mental Status: alert / awake / arousable and participated in evaluation Patient Amnestic to Procedure: Yes Nausea / Vomiting: adequately controlled Pain: adequately controlled Airway Patency, RR, SpO2: stable & adequate BP & HR: stable & adequate Hydration State: stable & adequate Anesthetic Complications: no major complications apparent and Pt Satisfied with anesthetic care
[2018-10-22] MEDS: IBUPROFEN 600 MG TAB PO PRN ×4 (04:19→20:41)
[2018-10-22] MEDS: ACETAMINOPHEN 325 MG TAB PO PRN ×2 (05:20→11:01)
--- NOTE | 2018-10-22 08:03 | Delivery Summary ---
DATE OF OPERATION: 10/22/2018 The patient delivered a live infant in left occiput anterior presentation. There was a tight nuchal cord which was clamped and cut. Infant was delivered and placed on mother's abdomen. Weight and Apgars in pediatric record. Delivery was otherwise unremarkable. Cord blood was obtained, placenta was retained. Decision was therefore made to remove placenta manually. While removal of placenta, there was excessive bleeding. Evaluation of the bleeding showed a cervical laceration. The patient did not have adequate analgesia. Decision was therefore made to take patient into the operating room. Ring forceps were used to obtain hemostasis. The patient was taken to the operating room. This is the end of this part of the procedure. I attest to the content of the Intraoperative Record and any orders documented therein. Any exception s are noted below.
--- NOTE | 2018-10-22 08:03 | Operative Report ---
DATE OF OPERATION: 10/22/2018 INDICATIONS FOR PROCEDURE: 1. Retained placenta. 2. Cervical laceration. POSTOPERATIVE DIAGNOSES: 1. Retained placenta. 2. Cervical laceration. PROCEDURE: 1. Examination under anesthesia. 2. Dilation and curettage under ultrasound guidance. 3. Repair of cervical laceration. SURGEON: Aki Copeland MD FLIGHT CREW TIME CLERK: Geno Mcleod MD FINDINGS: The patient had moderate amount of products still seen by ultrasound in the operating room. There was right lateral laceration of the cervix. ESTIMATED BLOOD LOSS: 600. IV FLUIDS: 1200 mL URINE OUTPUT: 200 mL clear urine at end of procedure. COMPLICATIONS: None. DRAINS: Gutierrez catheter. DISPOSITION: Stable to recovery room. PATHOLOGY: Retained products of conception. DESCRIPTION OF PROCEDURE: The patient was taken to the operating room where she was prepped and draped in normal sterile fashion. Gutierrez catheter was already placed in the bladder. Hemostasis had been obtained at the cervical side using ring forceps. A weighted speculum was placed in the vagina and the entire cervix evaluated. A size 14 curved curet was introduced into the uterus and under ultrasound, suction curettage performed. There was good hemostasis afterwards. The ring forceps were removed and the area sutured to hemostasis. There was good hemostasis at end of the suturing. All instruments were then removed from the vagina and accounted for x2. The patient is stable in recovery. I attest to the content of the Intraoperative Record and any orders documented therein. Any exception s are noted below.
[2018-10-22] MEDS: PRENATAL VITAMIN 1 TAB PO SCH (08:33)
[2018-10-22] MEDS: DOCUSATE SODIUM 100 MG CAP PO SCH ×2 (08:35→20:41)
--- NOTE | 2018-10-22 08:43 | Anesthesiology Progress Note ---
Date of Service October 22, 2018 Anesthesia Post Procedure Vital Signs Vital Signs: Temp Pulse Pulse Resp BP BP Pulse Ox 10/22/18 04:00 37 C 91 H 20 112/63 98 10/22/18 03:00 36.7 C 88 18 119/76 98 10/22/18 02:04 78 99 10/22/18 02:00 36.6 C 78 18 108/60 99 10/22/18 01:59 84 97 10/22/18 01:54 91 H 97 10/22/18 01:53 83 108/60 10/22/18 01:49 83 99 10/22/18 01:44 90 98 10/22/18 01:39 78 98 10/22/18 01:34 81 98 10/22/18 01:30 75 18 120/69 99 10/22/18 01:29 78 98 10/22/18 01:24 89 99 10/22/18 01:22 75 120/69 10/22/18 01:19 81 99 10/22/18 01:14 83 97 10/22/18 01:09 84 99 10/22/18 01:04 98 H 98 10/22/18 01:00 98 H 18 113/70 98 10/22/18 00:59 79 97 10/22/18 00:54 81 97 10/22/18 00:52 90 113/70 10/22/18 00:50 90 18 113/70 97 10/22/18 00:49 88 97 10/22/18 00:44 77 97 10/22/18 00:42 74 107/65 10/22/18 00:40 74 20 107/65 97 10/22/18 00:39 75 98 10/22/18 00:34 79 98 10/22/18 00:32 74 110/67 10/22/18 00:30 74 18 110/67 98 10/22/18 00:29 80 99 10/22/18 00:24 79 98 10/22/18 00:22 75 112/65 10/22/18 00:20 75 18 112/65 98 10/22/18 00:19 77 99 10/22/18 00:14 89 99 10/22/18 00:12 80 109/60 10/22/18 00:10 80 18 109/60 99 10/22/18 00:09 89 100 10/22/18 00:04 90 100 10/22/18 00:00 36.6 C 92 H 92 H 16 115/52 L 115/52 L 100 10/21/18 23:59 99 H 100 10/21/18 23:54 104 H 100 10/21/18 22:31 85 107/71 10/21/18 22:18 80 103/67 10/21/18 22:03 82 106/66 10/21/18 21:33 88 92 10/21/18 21:32 88 116/69 10/21/18 21:31 82 95 10/21/18 21:26 85 20 99 10/21/18 21:21 91 H 100 10/21/18 21:18 82 112/67 10/21/18 21:16 83 100 10/21/18 21:11 86 100 10/21/18 21:06 91 H 100 10/21/18 21:04 84 163/117 H 10/21/18 21:01 81 100 10/21/18 21:00 20 10/21/18 20:58 85 92 10/21/18 20:56 76 100 10/21/18 20:51 71 100 10/21/18 20:47 71 104/58 L 10/21/18 20:46 79 94 10/21/18 20:45 69 18 90/58 L 10/21/18 20:41 75 92 10/21/18 20:37 68 115/64 10/21/18 20:36 67 100 10/21/18 20:32 72 91 10/21/18 20:31 70 103/65 99 10/21/18 20:30 18 10/21/18 20:29 71 103/64 10/21/18 20:27 71 114/66 10/21/18 20:26 76 95 10/21/18 20:25 68 105/59 L 10/21/18 20:23 69 113/58 L 10/21/18 20:21 74 102/58 L 100 10/21/18 20:19 70 111/60 10/21/18 20:17 73 103/55 L 10/21/18 20:16 79 99 10/21/18 20:15 78 18 114/58 L 10/21/18 20:13 73 106/60 10/21/18 20:11 74 106/58 L 99 10/21/18 20:06 78 123/72 98 10/21/18 20:01 73 96 10/21/18 19:56 79 100 10/21/18 19:51 76 98 10/21/18 19:41 76 107/65 10/21/18 19:30 20 10/21/18 19:27 36.6 C 76 20 107/65 10/21/18 18:35 36.7 C 79 16 104/68 Notes Mental Status: alert / awake / arousable and participated in evaluation Nausea / Vomiting: adequately controlled Pain: adequately controlled Airway Patency, RR, SpO2: stable & adequate BP & HR: stable & adequate Hydration State: stable & adequate
[2018-10-22] MEDS ORDERED: FERROUS SULFATE 325 MG TAB PO SCH (09:00)
--- NOTE | 2018-10-22 10:27 | Obstetrical Progress Note ---
Date of Service October 22, 2018 Assessment & Plan (1) normal course: PPD #1 Pt doing well anticipate disch tomorrow Subjective Ambulation: ambulating normally Voiding: no voiding problems Passing Gas:: Yes Diet Tolerance:: regular diet Lochia:: Small Feeding Type:: breast feeding Review of Systems All systems reviewed & are unremarkable except as noted in HPI & below Physical Exam Vital Signs (Past 24 Hours) Last Vital Signs Temp 37 C 10/22/18 04:00 Pulse 91 H 10/22/18 04:00 Resp 20 10/22/18 04:00 BP 112/63 10/22/18 04:00 Pulse Ox 98 10/22/18 04:00 Constitutional WD/WN, vitals as above well developed and well nourished Eyes PERRL, conjunctivae normal, anicteric sclerae Neck trachea midline, no thyromegaly Respiratory normal respiratory effort, lungs clear to auscultation Auscultation: no crackles, no rales and no wheezes Cardiovascular RRR, no murmur, no edema Gastrointestinal (Abdomen) normal bowel sounds, soft, nontender, no hepatosplenomegaly Uterus is below umbilicus Musculoskeletal no cyanosis or clubbing, extremities motor strength 5/5 Skin no rashes, warm and dry Neurologic patellar DTR's 2+ bilat, sensation intact Psychiatric A+Ox3, euthymic affect Genitourinary normal external appearance
[2018-10-22] MEDS ORDERED: OXYCODONE/ACETAMINOPHEN 5mg/325mg TAB PO PRN (11:02)
[2018-10-22] MEDS ORDERED: ACETAMINOPHEN W/CODEINE #3 1 TAB PO PRN (11:02)
[2018-10-22 15:50] LABS: Hematocrit (blood only) 23.8 % (37-47); Hemoglobin 8.1 g/dL (12.0-16.0); Mean Corpuscular Volume 92.2 fL (80-100); Mean Platelet Volume 11.6 fL (7.4-10.4); Platelet Count 175 K/uL (130-400); RDW Coefficient of Variation 13.7 % (11.5-14.5); RDW Standard Deviation 45.9 fL (36.4-46.3); Red Blood Count 2.58 M/uL (4.2-5.4); White Blood Count 12.14 K/uL (4.8-10.8)
[2018-10-22 15:57] LABS: Basophils # (auto) 0.01 K/uL (0-0.2); Basophils % (auto) 0.1 %; Eosinophils # (auto) 0.02 K/uL (0-0.5); Eosinophils % (auto) 0.2 %; Immature Granulocytes # (auto) 0.04 K/uL (0.00-0.02); Immature Granulocytes % (auto) 0.3 %; Lymphocytes # (auto) 1.09 K/uL (1.2-3.4); Monocytes % (auto) 4.9 %; Neutrophils # (auto) 10.38 K/uL (1.4-6.5); Neutrophils % (auto) 85.5 %; Polychromasia 1+; Tear Drop Cells Occasional
[2018-10-22] MEDS: VALACYCLOVIR HCL 500 MG TABLET PO SCH ×2 (16:10→20:41)
--- NOTE | 2018-10-22 16:36 | Obstetrical Progress Note ---
Date of Service October 22, 2018 Subjective Patient is seen and examined. She feels well, no complaints. Ambulating without dizziness Voiding without difficulty Tolerating regular diet with out N&V Bleeding is minimal No fever/ chills/ CP/ SOB/ N&V/ Leg pain Vital Signs Temp Pulse Resp BP Pulse Ox 10/22/18 12:30 37 C 85 18 108/68 98 10/22/18 08:00 36.8 C 76 20 94/61 L 10/22/18 10/21/18 10/21/18 Range/Units 14:38 22:35 19:31 WBC 12.14 H (4.8-10.8) K/uL RBC 2.58 L (4.2-5.4) M/uL Hgb 8.1 L D 11.1 L (12.0-16.0) g/dL Hct 23.8 L 32.8 L (37-47) % MCV 92.2 (80-100) fL MCH 31.4 (25-34) pg MCHC 34.0 (32-36) g/dL RDW Std Deviation 45.9 (36.4-46.3) fL RDW Coeff of Tony 13.7 (11.5-14.5) % Plt Count 175 (130-400) K/uL MPV 11.6 H (7.4-10.4) fL Immature Gran % (Auto) 0.3 % Neut % (Auto) 85.5 % Lymph % (Auto) 9.0 % Ness % (Auto) 4.9 % Eos % (Auto) 0.2 % Baso % (Auto) 0.1 % Immature Gran # (Auto) 0.04 H (0.00-0.02) K/uL Neut # (Auto) 10.38 H (1.4-6.5) K/uL Lymph # (Auto) 1.09 L (1.2-3.4) K/uL Ness # (Auto) 0.60 H (0.11-0.59) K/uL Eos # (Auto) 0.02 (0-0.5) K/uL Baso # (Auto) 0.01 (0-0.2) K/uL Polychromasia 1+ Tear Drop Cells Occasional Blood Type B Negative Antibody Screen POSITIVE A Antibody Identification Anti-D due to RhIg Crossmatch See Detail 10/21/18 Range/Units 19:31 WBC 8.94 (4.8-10.8) K/uL RBC 3.68 L (4.2-5.4) M/uL Hgb 11.3 L (12.0-16.0) g/dL Hct 33.4 L (37-47) % MCV 90.8 (80-100) fL MCH 30.7 (25-34) pg MCHC 33.8 (32-36) g/dL RDW Std Deviation 44.5 (36.4-46.3) fL RDW Coeff of Tony 13.5 (11.5-14.5) % Plt Count 195 (130-400) K/uL MPV 11.3 H (7.4-10.4) fL Immature Gran % (Auto) % Neut % (Auto) % Lymph % (Auto) % Ness % (Auto) % Eos % (Auto) % Baso % (Auto) % Immature Gran # (Auto) (0.00-0.02) K/uL Neut # (Auto) (1.4-6.5) K/uL Lymph # (Auto) (1.2-3.4) K/uL Ness # (Auto) (0.11-0.59) K/uL Eos # (Auto) (0-0.5) K/uL Baso # (Auto) (0-0.2) K/uL Polychromasia Tear Drop Cells Blood Type Antibody Screen Antibody Identification Crossmatch PE: General: Alert, orientedx3, NAD CVS S1S2 RRR No tachycardia Abd: soft, NT, fundus firm, below Umbilicus Perineum intact, Lochia rubra minimal Ext; NT, no edema AP: 28 yo s/p , manual delivery of placenta, ppd# 0 Anemic but asymptomatic VSS Afebrile doing well She asked her nurse about blood transfusion Discussed the risks and alternative with oral iron therapy She desires iron therapy Continue routine care All questions were answered Physical Exam Vital Signs (Past 24 Hours): Last Vital Signs Temp 37 C 10/22/18 12:30 Pulse 85 10/22/18 12:30 Resp 18 10/22/18 12:30 BP 108/68 10/22/18 12:30 Pulse Ox 98 10/22/18 12:30
[2018-10-22] MEDS: HYDROCORTISONE ACETATE 25 MG SUPP PR PRN (20:42)
[2018-10-22] MEDS ORDERED: DOCUSATE SODIUM 100 MG CAP PO SCH (21:00)
[2018-10-23] MEDS: IBUPROFEN 600 MG TAB PO PRN ×2 (01:05→06:01)
[2018-10-23] MEDS: FERROUS SULFATE 325 MG TAB PO SCH ×2 (01:06→09:02)
[2018-10-23 07:28] LABS: Hematocrit (blood only) 23.2 % (37-47); Hemoglobin 7.5 g/dL (12.0-16.0); Mean Corpuscular Hgb Conc 32.3 g/dL (32-36); Mean Corpuscular Volume 94.3 fL (80-100); Mean Platelet Volume 11.2 fL (7.4-10.4); Platelet Count 181 K/uL (130-400); RDW Standard Deviation 48.1 fL (36.4-46.3); Red Blood Count 2.46 M/uL (4.2-5.4)
[2018-10-23] MEDS: PRENATAL VITAMIN 1 TAB PO SCH (09:02)
[2018-10-23] MEDS: VALACYCLOVIR HCL 500 MG TABLET PO SCH (09:02)
[2018-10-23] MEDS: DOCUSATE SODIUM 100 MG CAP PO SCH (09:02)
[2018-10-23] MEDS: HYDROCORTISONE ACETATE 25 MG SUPP PR PRN (09:02)
--- NOTE | 2018-10-23 10:36 | Obstetrical Progress Note ---
Date of Service October 23, 2018 PPD #1 pt doing well No complaints anticipate disc tomorrow Subjective Ambulation: ambulating normally Voiding: no voiding problems Passing Gas:: Yes Diet Tolerance:: regular diet Lochia:: Small Feeding Type:: breast feeding Review of Systems All systems reviewed & are unremarkable except as noted in HPI & below Physical Exam Vital Signs (Past 24 Hours) Last Vital Signs Temp 36.6 C 10/23/18 08:00 Pulse 70 10/23/18 08:00 Resp 18 10/23/18 08:00 BP 98/63 L 10/23/18 08:00 Pulse Ox 99 10/23/18 08:00 Constitutional WD/WN, vitals as above well developed and well nourished Eyes PERRL, conjunctivae normal, anicteric sclerae Neck trachea midline, no thyromegaly Respiratory normal respiratory effort, lungs clear to auscultation Auscultation: no crackles, no rales and no wheezes Cardiovascular RRR, no murmur, no edema Gastrointestinal (Abdomen) normal bowel sounds, soft, nontender, no hepatosplenomegaly Uterus is below umbilicus Musculoskeletal no cyanosis or clubbing, extremities motor strength 5/5 Skin no rashes, warm and dry Neurologic patellar DTR's 2+ bilat, sensation intact Psychiatric A+Ox3, euthymic affect Genitourinary normal external appearance
--- NOTE | 2018-10-23 10:41 | Progress Note ---
Date of Service October 23, 2018 Addendum: Pt has H/H 7.5/23.2 she is however asymptomatic. No tachycardia, No SOC, fatigue or light headedness discussed labs and absence of symptoms with pt we discussed blood transfusion, risk and benefits as well plan Pt wants to do expectant management for now pt is on Iron tabs and will call if she becomes symptomatic will repeat H/H at 6 week PP appt Physical Exam Vital Signs (Past 24 Hours): Last Vital Signs Temp 36.6 C 10/23/18 08:00 Pulse 70 10/23/18 08:00 Resp 18 10/23/18 08:00 BP 98/63 L 10/23/18 08:00 Pulse Ox 99 10/23/18 08:00
[2018-10-23] MEDS ORDERED: BISACODYL 5 MG TABEC PO SCH ×2 (20:00)
--- NOTE | 2018-10-24 08:50 | Discharge Summary ---
Date of Service November 19, 2018 Discharge Data Procedures Performed Operation Date: 10/21/18 22:35 Actual Procedures p Dilatation and Evacuation(Not Applicable) - Aki Copeland MD
--- NOTE | 2018-10-25 11:35 | Coding Query ---
CODING QUERY To promote full compliance with coding requirements relating to patient care, provider participation is requested in all cases of cpc coder uncertainty. Please assist us with the question(s) below: Coding Question(s): PLEASE INDICATE THE PATIENT'S WEEKS OF GESTATION/ AT THE TIME OF ADMISSION. Physician's Response(s): Thank you Minerva Mcgowan Principal Diagnosis: "that condition established after study, to be chiefly responsible for occasioning the admission of the patient to the hospital for care." Co-Existing Principal Diagnosis: "when two or more diagnoses equally meet the criteria for principal diagnosis as determined by the circumstances of admission, diagnostic work up, and/or therapy provided, and the Alphabetic Index, Tabular List, or another coding guideline does not provide sequencing direction, any one of the diagnoses may be sequenced first." "When the physician has documented what appears to be a current diagnosis in the body of the record, but has not included the diagnosis in the final diagnostic statement, the physician should be asked whether the diagnosis should be added." ([facility] 2 QTR90. p3-4) CLARIBEL
--- NOTE | 2018-11-19 01:17 | Discharge Summary ---
CHIEF COMPLAINT: at term. HISTORY OF PRESENT ILLNESS: This is a 28-year-old G3, P2 who presented to labor and delivery on 10/21/2012 in labor and delivered a live infant, weight and delivery process in the delivery note. Delivery was otherwise unremarkable. After infant was delivered, there was retained placenta. Attempt to manually remove the placenta resulted in significant bleeding. The part of the placenta remained in utero. The patient was therefore taken to the Operating Room where she underwent examination under anesthesia, repair of cervical laceration and removal of retained placenta. Details of the surgery are in the surgical note. Postoperative, the patient did well, was stable and was discharged home in a stable condition on 10/23/2018. PAST MEDICAL HISTORY: 1. History of pseudoseizures. 2. History of learning disorder. 3. History of posttraumatic stress disorder. PAST SURGICAL HISTORY: The patient had an echocardiogram with endoscopy in the past. SOCIAL HISTORY: The patient denies tobacco, drug or alcohol use. FAMILY HISTORY: Noncontributory. ALLERGIES: THE PATIENT IS ALLERGIC TO PENICILLIN AND AMOXICILLIN. FAMILY HISTORY: Noncontributory. REVIEW OF SYSTEMS: Negative except in HPI. PHYSICAL EXAMINATION: GENERAL: A well-developed, well-nourished white female, in no acute distress. VITAL SIGNS: On 10/23/2018 showed blood pressure of 98/63, pulse of 70, respirations of 18 and temperature of 36.6. HEART: S1, S2. Regular rhythm and rate. LUNGS: Clear to auscultation bilaterally. ABDOMEN: Nontender and nondistended. Positive bowel sounds. EXTREMITIES: No cyanosis, clubbing or edema. LABORATORY DATA: On 10/23/2018 hemoglobin was 7.5 and hematocrit was 23.2. CONDITION ON DISCHARGE: Stable. OPERATIONS: 1. Spontaneous vaginal delivery. 2. Repair of cervical laceration. 3. Dilatation and curettage under ultrasound guidance for removal of retained placenta. DISCHARGE DIAGNOSES: vaginal delivery with dilatation and curettage and retained placenta removal via dilatation and curettage. PLAN ON DISCHARGE: The patient is discharged home with instructions regarding activity, diet, followup appointment and medications.
== END 2018-10-23 16:10 | disposition home or self-care (01) | DRG 768 ==
LOC: OPB 18:22 → 4S1 18:26 → 4S2 10-22 02:40